=== PATIENT | male | born 1930 | race Caucasian/White ===

== ENCOUNTER → 2016-08-28 | Day surgery (SDC) | payer MEDICARE, OTHER ==
[~2016-08-28] MED LIST: AMOX1TAB43 PO; ASPI81TA28 PO; CALCTAB7 PO; CHOL100010 PO; HYDR-5688 PO; NRT/25 PO; SIMV10TA2 PO; TPRSR25 PO; VITACAP26 PO
== END | disposition home or self-care (01) ==
LOC: C.GI 11:50
PROVIDERS: ATTEND Internal Medicine Gastroenterology
DX: N32.1 Vesicointestinal fistula (principal); Z53.9 Procedure and treatment not carried out, unspecified reason

== ENCOUNTER → 2016-08-30 | Outpatient (CLI) | payer OTHER ==
[2016-08-30 17:45] LABS: AST/SGOT 37 U/L (15-37); BLOOD UREA NITROGEN 16 mg/dl (7-18); BUN/CREATININE RATIO 14.7 (10-20); CALCIUM 8.8 mg/dl (8.5-10.1); CARBON DIOXIDE 22 mmol/L (21-32); CHLORIDE 110 mmol/L (98-107); GLUCOSE 127 mg/dl (70-99); POTASSIUM 4.1 mmol/L (3.5-5.1); SODIUM 143 mmol/L (136-145)
[2016-08-30 17:47] LABS: ALB/GLOB RATIO 0.7 (0.9-2); ALKALINE PHOSPHATASE 83 U/L (45-117); ALT/SGPT 56 U/L (12-78)
== END | disposition home or self-care (01) ==
LOC: C.LABSPEC 12:37
PROVIDERS: ATTEND Family Medicine
DX: G20 Parkinson's disease (principal); I10 Essential (primary) hypertension

== ENCOUNTER → 2017-12-10 | Outpatient (CLI) | payer OTHER ==
[2017-12-10 12:11] LABS: BASO % 0.1 %; BASO ABS # 0.01 K/uL (0-0.2); EOS % 1.2 %; EOS ABS # 0.09 K/uL (0-0.5); HEMATOCRIT 38.8 % (42-52); HEMOGLOBIN 12.9 g/dL (14.0-18.0); IG# 0.01 K/uL (0.00-0.02); LYMPH % 15.6 %; LYMPH ABS # 1.18 K/uL (1.2-3.4); MEAN CELL VOLUME 94.4 fL (80-100); MEAN CORPUSCULAR HEMOGLOBIN 31.4 pg (25-34); MEAN CORPUSCULAR HGB CONC 33.2 g/dl (32-36); MEAN PLATELET VOLUME 9.6 fL (7.4-10.4); MONO % 6.7 %; MONO ABS # 0.51 K/uL (0.11-0.59); NEUT % 76.3 %; NEUT ABS # 5.78 K/uL (1.4-6.5); PLATELET COUNT 208 K/uL (130-400); RED CELL DISTRIBUTION WIDTH SD 55.7 fL (36.4-46.3); WHITE BLOOD COUNT 7.58 K/uL (4.8-10.8)
[2017-12-10 13:08] LABS: ALBUMIN 3.5 gm/dl (3.4-5.0); ALT/SGPT 22 U/L (12-78); AST/SGOT 20 U/L (15-37); BLOOD UREA NITROGEN 20 mg/dl (7-18); CALCIUM 8.5 mg/dl (8.5-10.1); CARBON DIOXIDE 20 mmol/L (21-32); CHOLESTEROL 156 mg/dl (0-200); CREATININE 1.17 mg/dl (0.60-1.40); GLUCOSE 103 mg/dl (70-99); POTASSIUM 3.5 mmol/L (3.5-5.1); SODIUM 141 mmol/L (136-145)
[2017-12-10 13:12] LABS: ALKALINE PHOSPHATASE 103 U/L (45-117); LDL CHOLESTEROL CALCULATED 111 mg/dl; TOTAL PROTEIN 7.2 gm/dl (6.4-8.2)
== END | disposition home or self-care (01) ==
LOC: C.LAB 09:52
PROVIDERS: ATTEND Nurse Practitioner Family
DX: E78.00 Pure hypercholesterolemia, unspecified (principal); I10 Essential (primary) hypertension; G20 Parkinson's disease; N39.0 Urinary tract infection, site not specified; E55.9 Vitamin D deficiency, unspecified

== ENCOUNTER 2017-12-20 17:45 | Emergency (ER) | payer OTHER ==
[~2017-12-20] VITALS: Ht 172.7 cm; Wt 72.0 kg
[~2017-12-20 17:45] MED LIST changes: -ASPI81TA28 PO
[2017-12-20 17:54] VITALS: TEMP 36.4; Ht 172.7 cm; Wt 72.0 kg
[2017-12-20] MEDS ORDERED: SODIUM CHLORIDE 0.9% 1000ML 1,000 ML IV STA (18:09)
[2017-12-20 18:43] LABS: BASO % 0.1 %; BASO ABS # 0.01 K/uL (0-0.2); EOS % 0.5 %; EOS ABS # 0.04 K/uL (0-0.5); HEMATOCRIT 40.8 % (42-52); HEMOGLOBIN 13.6 g/dL (14.0-18.0); IG# 0.01 K/uL (0.00-0.02); LYMPH % 17.2 %; LYMPH ABS # 1.43 K/uL (1.2-3.4); MEAN CELL VOLUME 95.1 fL (80-100); MEAN CORPUSCULAR HEMOGLOBIN 31.7 pg (25-34); MEAN CORPUSCULAR HGB CONC 33.3 g/dl (32-36); MEAN PLATELET VOLUME 9.7 fL (7.4-10.4); MONO % 7.7 %; MONO ABS # 0.64 K/uL (0.11-0.59); NEUT % 74.4 %; NEUT ABS # 6.16 K/uL (1.4-6.5); PLATELET COUNT 218 K/uL (130-400); RED CELL DISTRIBUTION WIDTH CV 16.7 % (11.5-14.5); RED CELL DISTRIBUTION WIDTH SD 57.5 fL (36.4-46.3); WHITE BLOOD COUNT 8.29 K/uL (4.8-10.8)
[2017-12-20 18:59] LABS: INR 1.3 (0.9-1.1)
[2017-12-20 19:00] LABS: ALBUMIN 3.5 gm/dl (3.4-5.0); CALCIUM 8.3 mg/dl (8.5-10.1); CREATININE 1.35 mg/dl (0.60-1.40); POTASSIUM 3.5 mmol/L (3.5-5.1)
--- NOTE | 2017-12-20 19:08 | DIAGNOSTIC IMAGING REPORT ---
CHEST ONE VIEW PORTABLE HISTORY: 87 years-old Male EVALUATE ALTERED MENTAL STATUS/WEAKNESS acutely altered mental status COMPARISON: Chest radiograph 08/03/2016 TECHNIQUE: Portable AP view of the chest FINDINGS: Cardiac silhouette is again moderately enlarged. Prior median sternotomy with surgical clips projecting over the right and left mediastinum. Atherosclerosis of the aorta. There is no pneumothorax, pleural effusion, focal airspace consolidation or overt pulmonary edema. Degenerative changes of the shoulders and spine redemonstrated. IMPRESSION: Cardiomegaly without acute process. The above report was generated using voice recognition software. It may contain grammatical, syntax or spelling errors. Electronically signed by: Marcus Schroeder M.D. 12/20/2017 7:07 PM Dictated Date/Time: 12/20/2017 7:06 PM
--- NOTE | 2017-12-20 19:14 | DIAGNOSTIC IMAGING REPORT ---
HEAD WITHOUT CONTRAST (CT) CLINICAL HISTORY: 87 years-old Male with EVALUATE ALTERED MENTAL STATUS/WEAKNESS. Acute weakness with headache TECHNIQUE: Multiple axial CT images of the head were obtained without contrast. A dose lowering technique was utilized adhering to the principles of ALARA. CT DOSE: 712.55 mGy.cm COMPARISON: CT head 08/03/2016. FINDINGS: No acute intracranial hemorrhage, midline shift, intracranial mass, hydrocephalus, territorial ischemia or abnormal extra-axial collection. Moderate atrophy with ex vacuo ventriculomegaly. Senescent calcifications of the basal ganglia. Vascular calcifications are seen at the level of the skull base. Moderate confluent areas of low-attenuation within the periventricular white matter suggest chronic microvascular ischemic changes. The calvarium is intact. The paranasal sinuses, mastoid air cells, and middle ear cavities are clear. Mild leftward bowing of the nasal septum with spurring. 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 Scattered foci of subcutaneous air about the soft tissues of the infratemporal fossa bilaterally suggest venous air, likely iatrogenic from IV access site. IMPRESSION: No acute intracranial abnormality. The above report was generated using voice recognition software. It may contain grammatical, syntax or spelling errors. Electronically signed by: Marcus Schroeder M.D. 12/20/2017 7:12 PM Dictated Date/Time: 12/20/2017 7:09 PM
[2017-12-20 19:27] LABS: CKMB 3.3 ng/ml (0.5-3.6); TOTAL PROTEIN 7.1 gm/dl (6.4-8.2)
--- NOTE | 2017-12-20 20:26 | EMERGENCY ROOM VISIT NOTE ---
History Report prepared by Edy: Holland Morataya Under the Supervision of: Paloma SilvermanO. First contact with patient: 18:07 Chief Complaint: ILLNESS Stated Complaint: FLU History of Present Illness The patient is an 87 year old male who presents to the Emergency Room with complaints of intermittent general shortness of breath worsened on exertion for three weeks. He was initially diagnosed with the flu three weeks ago. He states that he has seen his PCP at least six times in those three weeks and his symptoms are worsening. He reports general weakness. He reports mild swelling to his legs. He notes post nasal drip. He denies any chest pain. He feels dehydrated. Source of History: patient Onset: three weeks Position: other (general ) Quality: other (shortness of breath) Timing: intermittent Associated Symptoms: + weakness, No chest pain Note: Notes mild swelling to legs, dehydration, and post nasal drip. Review of Systems See HPI for pertinent positives & negatives. A total of 10 systems reviewed and were otherwise negative. 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 (2) Hypertension Nos (3) Pure Hypercholesterolem Surgical Problems: (1) History of cryosurgery (2) Hx of CABG Family History No pertinent family history Social History Smoking Status: Never Smoker Alcohol Use: occasionally Drug Use: none Marital Status: Housing Status: lives alone Occupation Status: retired Current/Historical Medications Scheduled Ascorbic Acid (Vitamin C), 500 MG PO 2XWK Aspirin (Aspirin Ec), 162 MG PO 2XWK Calcium Carbonate-Vitamin D W/ (Caltrate 600 Plus), 1 TAB PO 2XWK Cholecalciferol (Vitamin D 1000 Unit), 1,000 INTER.UNIT PO 2-3XSWEEK Doxycycline Hyclate (Doxycycline Hyclate), 1 TAB PO 2XWK Fexofenadine Hcl ([place] Allergy), 1 TAB PO DAILY Scheduled PRN Hydrocodone/Acetaminophen 5MG/325MG ([place] 5MG/325MG), 1 TABLET PO BID PRN for Pain Melatonin (Melatonin), 5 MG PO HS PRN for Sleep Saline (Saline Nasal [place]), 1 SPRAY NA QID PRN for DRYNESS Allergies Coded Allergies: Ciprofloxacin (Verified Allergy, Mild, RASH, 08/09/16) Physical Exam Vital Signs Date Time Temp Pulse Resp B/P (MAP) Pulse Ox O2 Delivery O2 Flow Rate FiO2 5/4/18 20:17 84 24 94 Room Air 12/20/17 19:45 69 18 155/95 94 Room Air 12/20/17 19:07 78 12/20/17 17:54 36.4 71 18 154/87 92 Room Air Physical Exam CONSTITUTIONAL/VITAL SIGNS: Reviewed / noted above. GENERAL: Non-toxic in appearance. INTEGUMENTARY: Warm, dry, and [place]. HEAD: Normocephalic. EYES: without scleral icterus or trauma. ENT/OROPHARYNX: clear and moist. LYMPHADENOPATHY/NECK: Is supple without lymphadenopathy or meningismus. RESPIRATORY: Lungs clear and equal. CARDIOVASCULAR: Regular rate and rhythm. GI/ABDOMEN: Soft and nontender. No organomegaly or pulsatile mass. No rebound or guarding. Normal bowel sounds. EXTREMITIES: Warm and well perfused. BACK: No CVA tenderness. NEUROLOGICAL: Intact without focal deficits. PSYCHIATRIC: normal affect. MUSCULOSKELETAL: Normally developed with good muscle tone. Medical Decision & Procedures ER Provider Diagnostic Interpretation: Radiology results as stated below per my review and radiologist interpretation: CHEST ONE VIEW PORTABLE HISTORY: 87 years-old Male EVALUATE ALTERED MENTAL STATUS/WEAKNESS acutely altered mental status COMPARISON: Chest radiograph 08/03/2016 TECHNIQUE: Portable AP view of the chest FINDINGS: Cardiac silhouette is again moderately enlarged. Prior median sternotomy with surgical clips projecting over the right and left mediastinum. Atherosclerosis of the aorta. There is no pneumothorax, pleural effusion, focal airspace consolidation or overt pulmonary edema. Degenerative changes of the shoulders and spine redemonstrated. IMPRESSION: Cardiomegaly without acute process. The above report was generated using voice recognition software. It may contain grammatical, syntax or spelling errors. Electronically signed by: Marcus Schroeder M.D. 12/20/2017 7:07 PM Dictated Date/Time: 12/20/2017 7:06 PM HEAD WITHOUT CONTRAST (CT) CLINICAL HISTORY: 87 years-old Male with EVALUATE ALTERED MENTAL STATUS/WEAKNESS. Acute weakness with headache TECHNIQUE: Multiple axial CT images of the head were obtained without contrast. A dose lowering technique was utilized adhering to the principles of ALARA. CT DOSE: 712.55 mGy.cm COMPARISON: CT head 08/03/2016. FINDINGS: No acute intracranial hemorrhage, midline shift, intracranial mass, hydrocephalus, territorial ischemia or abnormal extra-axial collection. Moderate atrophy with ex vacuo ventriculomegaly. Senescent calcifications of the basal ganglia. Vascular calcifications are seen at the level of the skull base. Moderate confluent areas of low-attenuation within the periventricular white matter suggest chronic microvascular ischemic changes. The calvarium is intact. The paranasal sinuses, mastoid air cells, and middle ear cavities are clear. Mild leftward bowing of the nasal septum with spurring. 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 Scattered foci of subcutaneous air about the soft tissues of the infratemporal fossa bilaterally suggest venous air, likely iatrogenic from IV access site. IMPRESSION: No acute intracranial abnormality. The above report was generated using voice recognition software. It may contain grammatical, syntax or spelling errors. Electronically signed by: Marcus Schroeder M.D. 12/20/2017 7:12 PM Dictated Date/Time: 12/20/2017 7:09 PM Laboratory Results 12/20/17 18:30 Red Blood Count 4.29, Mean Corpuscular Volume 95.1, Mean Corpuscular Hemoglobin 31.7, Mean Corpuscular Hemoglobin Concent 33.3, Mean Platelet Volume 9.7, Neutrophils (%) (Auto) 74.4, Lymphocytes (%) (Auto) 17.2, Monocytes (%) (Auto) 7.7, Eosinophils (%) (Auto) 0.5, Basophils (%) (Auto) 0.1, Neutrophils # (Auto) 6.16, Lymphocytes # (Auto) 1.43, Monocytes # (Auto) 0.64, Eosinophils # (Auto) 0.04, Basophils # (Auto) 0.01 12/20/17 18:30 Test 12/20/17 18:30 White Blood Count 8.29 K/uL (4.8-10.8) Red Blood Count 4.29 M/uL (4.7-6.1) Hemoglobin 13.6 g/dL (14.0-18.0) Hematocrit 40.8 % (42-52) Mean Corpuscular Volume 95.1 fL (80-100) Mean Corpuscular Hemoglobin 31.7 pg (25-34) Mean Corpuscular Hemoglobin Concent 33.3 g/dl (32-36) Platelet Count 218 K/uL (130-400) Mean Platelet Volume 9.7 fL (7.4-10.4) Neutrophils (%) (Auto) 74.4 % Lymphocytes (%) (Auto) 17.2 % Monocytes (%) (Auto) 7.7 % Eosinophils (%) (Auto) 0.5 % Basophils (%) (Auto) 0.1 % Neutrophils # (Auto) 6.16 K/uL (1.4-6.5) Lymphocytes # (Auto) 1.43 K/uL (1.2-3.4) Monocytes # (Auto) 0.64 K/uL (0.11-0.59) Eosinophils # (Auto) 0.04 K/uL (0-0.5) Basophils # (Auto) 0.01 K/uL (0-0.2) RDW Standard Deviation 57.5 fL (36.4-46.3) RDW Coefficient of Variation 16.7 % (11.5-14.5) Immature Granulocyte % (Auto) 0.1 % Immature Granulocyte # (Auto) 0.01 K/uL (0.00-0.02) Prothrombin Time 13.1 SECONDS (9.0-12.0) Prothromb Time International Ratio 1.3 (0.9-1.1) Activated Partial Thromboplast Time 27.0 SECONDS (21.0-31.0) Partial Thromboplastin Ratio 1.0 Anion Gap 8.0 mmol/L (3-11) Est Creatinine Clear Calc Drug Dose 36.6 ml/min Estimated GFR () 53.9 Estimated GFR (Non- 46.5 BUN/Creatinine Ratio 19.8 (10-20) Calcium Level 8.3 mg/dl (8.5-10.1) Magnesium Level 2.0 mg/dl (1.8-2.4) Total Bilirubin 1.4 mg/dl (0.2-1) Direct Bilirubin 0.4 mg/dl (0-0.2) Aspartate Amino Transf (AST/SGOT) 31 U/L (15-37) Alanine Aminotransferase (ALT/SGPT) 34 U/L (12-78) Alkaline Phosphatase 100 U/L (45-117) Total Creatine Kinase 140 U/L (39-308) Creatine Kinase MB 3.3 ng/ml (0.5-3.6) Creatine Kinase MB Ratio 2.4 (0-3.0) Troponin I 0.056 ng/ml (0-0.045) Total Protein 7.1 gm/dl (6.4-8.2) Albumin 3.5 gm/dl (3.4-5.0) Lipase 177 U/L (73-393) Thyroid Stimulating Hormone (TSH) 3.440 uIu/ml (0.300-4.500) Laboratory results as stated above per my review. Medications Administered Medications (Trade) Dose Ordered Sig/Wade Route Start Time Stop Time Status Last Admin Dose Admin Sodium Chloride 1,000 ml @ 200 mls/hr Q5H STAT IV 12/20/17 18:09 12/20/17 23:08 12/20/17 18:57 200 MLS/HR ECG Per My Interpretation Indication: weakness Rate (beats per minute): 71 Rhythm: atrial fibrillation Findings: LAFB, RBBB Change: no significant change (when compared to 08/06/2016) ED Course 1811: Previous medical records were reviewed. The patient was evaluated in room C9. A complete history and physical examination was performed. 1808: Ordered Sodium Chloride 1,000 ml @ 200 mls/hr IV 1944: I reassessed the patient at this time. He will provide a urine sample. 2027: I reassessed the patient at this time. He is feeling better and resting comfortably. I discussed the results and treatment plan with the patient. I answered all pertaining questions that he had. He expressed understanding and verbalized agreement. The patient will be discharged home. Medical Decision Differentials include: Acute coronary syndrome, myocardial infarction, CVA, TIA , anemia, infection, pneumonia, UTI, pyelonephritis, poor nutrition, dehydration , electrolyte disturbance, and hypoglycemia. This is an 87-year-old male who presents to the ED with a chief complaint of decreased appetite, fatigue, headache, cough and congestion. The patient has had symptoms for at least 3 weeks. He states that he is seen his PCP about 5 or 6 times for the same symptoms. He had some blood work recently that was unremarkable. The patient reports a postnasal drip as well as some occasional shortness of breath with exertion. His physical exam today is normal. His vital signs are normal. Vital signs during ambulation were also normal. The patient's CBC is unremarkable, complete metabolic panel is also unremarkable. The troponin is mildly elevated at 0.056. Reviewing the troponins over the past 2 years, they are always slightly elevated more than today. Chest x-ray was negative for acute disease and a CT scan of the brain was also negative for acute disease. The patient was told the results. He is felt to be stable for discharge. He states that he is setting up Meals on Wheels at home. He was told to follow-up with his PCP for recheck next week. The patient was treated with normal saline IV. Medication Reconcilliation Current Medication List: was personally reviewed by me Blood Pressure Screening Patient's blood pressure: Elevated blood pressure Blood pressure disposition: Referred to PCP Impression Primary Impression: Weakness Additional Impression: Dehydration Scribe Attestation The scribe's documentation has been prepared under my direction and personally reviewed by me in its entirety. I confirm that the note above accurately reflects all work, treatment, procedures, and medical decision making performed by me. Departure Information Dispostion Home / Self-Care Referrals Kurt Zazueta III, CRNP (PCP) Forms HOME CARE DOCUMENTATION FORM, IMPORTANT VISIT INFORMATION, WORK / SCHOOL INSTRUCTIONS Patient Instructions ED Dehydration, My [facility] Additional Instructions Follow-up with your doctor for further care and evaluation in 1-6 days. Return to the emergency department for worsening or new symptoms or any concerns. You have been examined and treated today on an emergency basis only. This is not a substitute for, or an effort to provide, complete comprehensive medical care. It is impossible to recognize and treat all injuries or illnesses in a single emergency department visit. It is therefore important that you follow up closely with your doctor. Call as soon as possible for an appointment. Problem Qualifiers
[2017-12-20 20:41] VITALS: BP 169/100; PULSE 71; O2SAT 96
[2017-12-23] MEDS ORDERED: ASPI81TA28 PO (11:09)
[2017-12-23] MEDS ORDERED: SALI-3 (18:58)
[2017-12-23] MEDS ORDERED: DOXY100T PO (18:58)
[2017-12-23] MEDS ORDERED: ASCA500 PO (18:58)
[2017-12-23] MEDS ORDERED: MELA5CAP PO (18:58)
[2017-12-23] MEDS ORDERED: CHOL100027 PO (18:58)
[2017-12-23] MEDS ORDERED: HYDR-5688 PO (18:58)
[2017-12-23] MEDS ORDERED: FEXO1TAB49 PO (18:58)
[2017-12-23] MEDS ORDERED: CALCTAB7 PO (18:58)
== END 2017-12-20 20:50 | disposition home or self-care (01) ==
LOC: C.EDB 17:45 → C.EDC 20:50
DX: R53.1 Weakness (principal); E86.0 Dehydration; R09.82 Postnasal drip; I10 Essential (primary) hypertension; I25.10 Atherosclerotic heart disease of native coronary artery without angina pectoris; Z79.82 Long term (current) use of aspirin; Z88.2 Allergy status to sulfonamides